=== PATIENT | female | born 1965 | race Caucasian/White ===

== ENCOUNTER 2022-04-30 05:58 | Emergency (ER) | payer MEDICAID ==
[~2022-04-30] VITALS: Ht 154.9 cm; Wt 72.6 kg
--- NOTE | 2022-04-30 06:00 | NUR ---
Patient to ER bed 02 to gown for evaluation. Side rails up. Report given to DIANA HOWARD.
[2022-04-30 06:04] VITALS: BP_SYST 124
--- NOTE | 2022-04-30 06:31 | NUR ---
The pt is situated in ER 2. AAO x4. C/o SOB. On RA at this time. States old history of asthma. The pt is able to speak in complete sentences at this time. Safety measures in place.
--- NOTE | 2022-04-30 07:12 | NUR ---
No acute changes in the pt's condition. No s/sx of acute reps distress noted at this time. Report given to DIANA Lizarraga
[2022-04-30 07:14] LABS: BASOPHILS % (AUTO) 0.5 % (0.0-2.0); EOSINOPHILS # (AUTO) 0.1 K/uL (0.0-0.4); HEMATOCRIT 35.2 % (36-48); HEMOGLOBIN 11.7 g/dL (12.0-16.0); LYMPHOCYTES # (AUTO) 1.5 K/uL (1.0-5.5); LYMPHOCYTES % (AUTO) 17.7 % (20.5-51.5); MEAN CORPUSCULAR HEMOGLOBIN 30 pg (27-31); MEAN CORPUSCULAR HGB CONC 33 % (32-36); MEAN CORPUSCULAR VOLUME 90 fL (79.0-98.0); MONOCYTES # (AUTO) 0.6 K/uL (0.0-1.0); MONOCYTES % (AUTO) 6.9 % (1.7-9.3); NEUTROPHILS # (AUTO) 6.2 K/uL (1.8-7.7); NEUTROPHILS % (AUTO) 73.9 % (40.0-70.0); PLATELET COUNT (AUTO) 230 K/uL (130-430); RED BLOOD CELL COUNT(AUTO) 3.91 MIL/uL (4.2-6.2); WHITE BLOOD COUNT (AUTO) 8.3 K/uL (4.8-10.8)
[2022-04-30 07:29] LABS: ANION GAP 10 (5-15); CALCIUM 8.6 mg/dL (8.4-11.0); CHLORIDE 104 mmol/L (98-107); CREATININE 0.89 mg/dL (0.55-1.30); GLUCOSE 109 mg/dL (70-99); UREA NITROGEN, BLOOD 14 mg/dL (8-21)
[2022-04-30 07:35] LABS: ALANINE AMINOTRANSFERASE 52 U/L (12-78); ALBUMIN 2.3 g/dL (3.4-4.8); AMYLASE 55 U/L (0-100); ASPARTATE AMINOTRANSFERASE 23 U/L (10-37); LIPASE 85 U/L (73-393); TOTAL BILIRUBIN 0.3 mg/dL (0.0-1.0)
[2022-04-30 07:37] LABS: GFR AFRICAN AMERICAN 85 mL/min (>90)
[2022-04-30] MEDS ORDERED: IBUP-1969 PO (07:54)
[2022-04-30] MEDS ORDERED: OSEL75CA PO (07:54)
[2022-04-30] MEDS ORDERED: ALBMDI INH (07:56)
[2022-04-30 08:03] LABS: ACETONE, SERUM TRACE (NEGATIVE)
[2022-04-30 08:24] VITALS: BP_SYST 150
--- NOTE | 2022-04-30 08:24 | NUR ---
Patient given written and verbal discharge instructions and verbalizes understanding. ER MD DR BASS discussed with patient the results and treatment provided. Patient in stable condition. ID arm band removed. IV catheter removed intact and dressing applied, no active bleeding. Rx of MOTRIN, TAMIFLU, ALBUTEROL given. Patient educated on pain management and to follow up with PMD. Pain Scale 0/10. Opportunity for questions provided and answered. Medication side effect fact sheet provided.
== END 2022-04-30 08:24 | disposition home or self-care (01) ==
LOC: SED 05:58
DX: J10.1 Influenza due to other identified influenza virus with other respiratory manifestations (principal); R07.81 Pleurodynia; R06.02 Shortness of breath; Z88.0 Allergy status to penicillin; Z79.899 Other long term (current) drug therapy; Z20.822 Contact with and (suspected) exposure to COVID-19
CPT/HCPCS: 36415; 71045; 80053; 82009; 82150; 82550; 83605; 83690; 83880; 84484; 84703; 85025; 85379; 93005; 99285